=== PATIENT | female | born 1990 | race Caucasian/White ===

== ENCOUNTER 2018-09-22 06:41 | Emergency (ER) | payer MEDICAID ==
[2018-09-22] MEDS ORDERED: normal saline 1000ML IV soln IVB ONE ×2 (06:55→08:30)
[2018-09-22 07:24] LABS: URINE HCG NEGATIVE (NEG)
[2018-09-22 07:34] LABS: BASOPHILS # (AUTO) 0.2 X10'3 (0-0.2); BASOPHILS % (AUTO) 1.4 % (0-1); EOSINOPHILS # (AUTO) 0.2 X10'3 (0-0.9); EOSINOPHILS % (AUTO) 1.4 % (0-6); HEMATOCRIT 44.4 % (35.0-45.0); HEMOGLOBIN 14.8 g/dl (12.0-16.0); LYMPHOCYTES # (AUTO) 4.9 X10'3 (1.1-4.8); LYMPHOCYTES % (AUTO) 39.7 % (21-51); MEAN CORPUSCULAR HEMOGLOBIN 30.9 PG (27.0-31.0); MEAN CORPUSCULAR HGB CONC 33.3 g/dL (33.0-36.5); MEAN CORPUSCULAR VOLUME 92.9 FL (78-98); MEAN PLATELET VOLUME 8.7 FL (7.4-10.4); MONOCYTES # (AUTO) 1.1 X10'3 (0-0.9); MONOCYTES % (AUTO) 8.7 % (2-12); NEUTROPHILS % (AUTO) 48.8 % (42-75); PLATELET COUNT 489 X10'3 (140-440); RED BLOOD COUNT 4.79 X10'6 (4.20-5.60); RED CELL DISTRIBUTION WIDTH 13.4 % (11.5-14.5); WHITE BLOOD COUNT 12.3 X10'3 (4.5-11.0)
[2018-09-22 07:42] LABS: ALANINE AMINOTRANSFERASE 46 U/L (12-78); ALBUMIN 3.5 G/DL (3.4-5.0); ALBUMIN/GLOBULIN RATIO 0.8 (1.1-1.5); ALKALINE PHOSPHATASE 152 IU/L (46-116); ANION GAP 11 (8-16); BILIRUBIN,TOTAL 0.3 MG/DL (0.1-1.0); BLOOD UREA NITROGEN 19 MG/DL (7-18); BUN/CREATININE RATIO 22.9 (6.6-38.0); CHLORIDE 99 MMOL/L (99-107); CREATININE 0.83 MG/DL (0.40-0.90); GLUCOSE 280 MG/DL (70-104); SODIUM 136 MMOL/L (135-145); TOTAL CARBON DIOXIDE 25.9 MMOL/L (24-32); TOTAL PROTEIN 8.1 G/DL (6.4-8.2); eGFR 84 ML/MIN
[2018-09-22 07:46] LABS: ASPARTATE AMINO TRANSFERASE 42 U/L (10-37)
[2018-09-22 07:47] LABS: POTASSIUM 5.2 MMOL/L (3.5-5.1)
[2018-09-22 08:21] VITALS: BP 117/86
--- NOTE | 2018-09-22 08:21 | NUR ---
urine sent to [facility].
--- NOTE | 2018-09-22 08:24 | NUR ---
dr. islas at bedside.
[2018-09-22] MEDS ORDERED: morphine 4 MG/ML inj SYRINge IV PRN (08:30)
[2018-09-22] MEDS ORDERED: ondansetron/PF 4mg/2ml inj IV ONE (08:30)
[2018-09-22 08:42] LABS: CLARITY,URINE CLOUDY (Clear); COLOR,URINE YELLOW (Yellow); GLUCOSE, URINE 500 mg/dl (Neg); KETONES,URINE 15 mg/dl (Neg); LEUKOCYTE ESTERASE ,URINE MODERATE (Neg); NITRITES, URINE NEGATIVE (Neg); OCCULT BLOOD,URINE SMALL (Neg); PROTEIN,URINE 30 mg/dl (Neg); UROBILINOGEN,URINE 0.2 E.U/dL (0.2-1.0)
[2018-09-22 08:43] LABS: UA COLLECTION TYPE CLN CATCH MIDSTREAM
[2018-09-22 08:51] LABS: SQUAMOUS EPITHELIAL CELL,UR MANY /LPF (FEW)
[2018-09-22 08:53] LABS: BACTERIA,URINE 3+ /HPF (Neg); WBC,URINE 30-50 /HPF (0-4)
[2018-09-22 08:54] LABS: TRANSITIONAL EPI CELLS,URINE FEW /HPF
[2018-09-22] MEDS ORDERED: METR500T PO (09:48)
[2018-09-22] MEDS ORDERED: CIPR-259 PO (09:48)
[2018-09-22] MEDS ORDERED: HYDR-3965 PO (09:56)
[2018-09-22] MEDS ORDERED: ONDA4TAB6 PO (09:56)
[2018-09-22 13:35] LABS: OCCULT BLOOD STOOL NEGATIVE (Neg)
== END 2018-09-22 10:21 | disposition home or self-care (01) ==
LOC: ER 06:42
DX: E10.65 Type 1 diabetes mellitus with hyperglycemia (principal); E87.5 Hyperkalemia; R19.7 Diarrhea, unspecified; G89.29 Other chronic pain; K62.89 Other specified diseases of anus and rectum
CPT/HCPCS: 36415; 74176; 80053; 81001; 81025; 82272; 85025; 96361; 96374; 96375; 99284; J2270; J2405; J7030

== ENCOUNTER 2018-12-25 14:45 | Emergency (ER) | payer MEDICAID, OTHER ==
[~2018-12-25] VITALS: Ht 162.6 cm; Wt 59.1 kg
[~2018-12-25 14:45] MED LIST: ONDA4TAB6 PO
[2018-12-25 15:08] VITALS: BP 109/74
[2018-12-26] MEDS ORDERED: DOXY100C43 PO (00:10)
== END 2018-12-25 15:16 | disposition home or self-care (01) ==
LOC: ER 14:46
DX: S90.822A Blister (nonthermal), left foot, initial encounter (principal); E11.9 Type 2 diabetes mellitus without complications; Z90.49 Acquired absence of other specified parts of digestive tract; Z98.890 Other specified postprocedural states; X58.XXXA Exposure to other specified factors, initial encounter; Y93.89 Activity, other specified; Y92.89 Other specified places as the place of occurrence of the external cause; Y99.8 Other external cause status
CPT/HCPCS: 99282

== ENCOUNTER 2018-12-25 21:41 | Emergency (ER) | payer MEDICAID, OTHER ==
[~2018-12-25] VITALS: Ht 162.6 cm; Wt 63.4 kg
[2018-12-25 23:47] VITALS: BP 124/86
[2018-12-26] MEDS ORDERED: DOXYCYCLINE 100MG CAPSULE PO STA (00:07)
[2018-12-26] MEDS ORDERED: DOXY100C43 PO (00:10)
== END 2018-12-26 00:27 | disposition home or self-care (01) ==
LOC: ER 21:41
DX: S90.822A Blister (nonthermal), left foot, initial encounter (principal); E11.9 Type 2 diabetes mellitus without complications; Z90.49 Acquired absence of other specified parts of digestive tract; X58.XXXA Exposure to other specified factors, initial encounter; Y93.89 Activity, other specified; Y92.89 Other specified places as the place of occurrence of the external cause; Y99.9 Unspecified external cause status
CPT/HCPCS: 10140; 99283; 99284

== ENCOUNTER 2019-01-27 09:22 | Emergency (ER) | payer MEDICAID ==
[~2019-01-27] VITALS: Ht 162.6 cm; Wt 59.1 kg
[2019-01-27] MEDS ORDERED: normal saline 1000ML IV soln IVB ONE ×2 (09:50→11:15)
[2019-01-27] MEDS ORDERED: metoclopramide 5 mg/ml inj IV ONE (09:50)
[2019-01-27] MEDS ORDERED: LORazepam 2 mg/ml vial IV ONE (09:50)
[2019-01-27 10:03] LABS: BASOPHILS % (AUTO) 0.3 % (0-1); EOSINOPHILS % (AUTO) 0.1 % (0-6); HEMATOCRIT 40.1 % (35.0-45.0); HEMOGLOBIN 13.2 g/dl (12.0-16.0); LYMPHOCYTES # (AUTO) 0.8 X10'3 (1.1-4.8); LYMPHOCYTES % (AUTO) 6.5 % (21-51); MEAN CORPUSCULAR HEMOGLOBIN 30.9 PG (27.0-31.0); MEAN CORPUSCULAR VOLUME 93.8 FL (78-98); MEAN PLATELET VOLUME 8.6 FL (7.4-10.4); MONOCYTES # (AUTO) 0.2 X10'3 (0-0.9); MONOCYTES % (AUTO) 1.7 % (2-12); NEUTROPHILS # (AUTO) 11.4 X10'3 (1.8-7.7); NEUTROPHILS % (AUTO) 91.4 % (42-75); PLATELET COUNT 386 X10'3 (140-440); RED BLOOD COUNT 4.27 X10'6 (4.20-5.60); RED CELL DISTRIBUTION WIDTH 13.3 % (11.5-14.5); WHITE BLOOD COUNT 12.4 X10'3 (4.5-11.0)
[2019-01-27 10:18] LABS: ALANINE AMINOTRANSFERASE 26 U/L (12-78); ALBUMIN 3.6 G/DL (3.4-5.0); ALBUMIN/GLOBULIN RATIO 0.9 (1.1-1.5); ALKALINE PHOSPHATASE 75 IU/L (46-116); ANION GAP 11 (8-16); ASPARTATE AMINO TRANSFERASE 15 U/L (10-37); BILIRUBIN,TOTAL 0.3 MG/DL (0.1-1.0); BLOOD UREA NITROGEN 9 MG/DL (7-18); BUN/CREATININE RATIO 16.4 (6.6-38.0); CALCIUM 8.9 MG/DL (8.5-10.1); CHLORIDE 101 MMOL/L (99-107); CREATININE 0.55 MG/DL (0.40-0.90); GLUCOSE 247 MG/DL (70-104); LIPASE 162 U/L (73-393); POTASSIUM 3.5 MMOL/L (3.5-5.1); SODIUM 139 MMOL/L (135-145); TOTAL CARBON DIOXIDE 26.9 MMOL/L (24-32); TOTAL PROTEIN 7.4 G/DL (6.4-8.2); eGFR > 90 ML/MIN
--- NOTE | 2019-01-27 10:20 | NUR ---
PATIENT DID NOT WANT TO TAKE HER CLOTHED OFF AND GET INTO A GOWN
--- NOTE | 2019-01-27 10:21 | NUR ---
patient vomited orange colored food twice for a total of 500 ml
--- NOTE | 2019-01-27 11:11 | NUR ---
DR COLVIN INFORMED THAT ST STILL IN THE 120'S TO 130'S DESPITE 2 LITERS OF NS INFUSED
--- NOTE | 2019-01-27 11:35 | NUR ---
pt stated that she is unable to make urine at this time
[2019-01-27] MEDS ORDERED: ringers solution, lacted 1,000 ML IV ONE (12:40)
[2019-01-27 12:44] LABS: MAGNESIUM 1.4 MG/DL (1.5-2.4); PHOSPHORUS 2.6 MG/DL (2.3-4.5)
[2019-01-27] MEDS ORDERED: magnesium 2GM in 50ml NS 50 ML IV ONE (12:55)
[2019-01-27 13:01] VITALS: BP 118/80
--- NOTE | 2019-01-27 13:03 | NUR ---
md aware no void yet, previously discussed anothert liter of fluid, dr toth informed magnesium =1.4, order for 2 grams magnesium recieved
[2019-01-27] MEDS ORDERED: METO-292 PO (13:37)
[2019-01-27] MEDS ORDERED: ONDA4TAB12 PO (13:37)
[2019-01-27 13:39] LABS: URINE HCG NEGATIVE (NEG)
[2019-01-27 13:45] LABS: CLARITY,URINE SLIGHTLY CLOUDY (Clear); COLOR,URINE YELLOW (Yellow); GLUCOSE, URINE >=1000 mg/dl (Neg); KETONES,URINE 40 mg/dl (Neg); LEUKOCYTE ESTERASE ,URINE NEGATIVE (Neg); NITRITES, URINE NEGATIVE (Neg); OCCULT BLOOD,URINE NEGATIVE (Neg); PROTEIN,URINE NEGATIVE (Neg); UROBILINOGEN,URINE 0.2 E.U/dL (0.2-1.0)
[2019-01-27 13:46] LABS: UA COLLECTION TYPE CLN CATCH MIDSTREAM
[2019-01-27 14:17] LABS: AMORPHOUS PHOSPHATES 1+; SQUAMOUS EPITHELIAL CELL,UR MODERATE /LPF (FEW)
[2019-01-27 14:19] LABS: BACTERIA,URINE FEW /HPF (Neg); RBC,URINE 0-2 /HPF (0-2); WBC,URINE 0-4 /HPF (0-4)
== END 2019-01-27 14:10 | disposition home or self-care (01) ==
LOC: ER 09:22
DX: E11.43 Type 2 diabetes mellitus with diabetic autonomic (poly)neuropathy (principal); K31.84 Gastroparesis; R11.2 Nausea with vomiting, unspecified; R00.0 Tachycardia, unspecified; Z90.49 Acquired absence of other specified parts of digestive tract
CPT/HCPCS: 36415; 80053; 81001; 81025; 82948; 83690; 83735; 84100; 85025; 85610; 96361; 96365; 96375; 99283; J2060; J2765; J3475; J7030; J7120

== ENCOUNTER 2019-01-29 19:07 | Emergency (ER) | payer MEDICAID ==
[~2019-01-29] VITALS: Ht 162.6 cm; Wt 61.1 kg
[~2019-01-29 19:07] MED LIST changes: +METO-292 PO; +ONDA4TAB12 PO
[2019-01-29] MEDS ORDERED: metoclopramide 5 mg/ml inj IV ONE (19:20)
[2019-01-29] MEDS ORDERED: normal saline 1000ML IV soln IVB ONE (19:20)
[2019-01-29 19:51] LABS: BASOPHILS # (AUTO) 0.1 X10'3 (0-0.2); EOSINOPHILS % (AUTO) 0.5 % (0-6); HEMATOCRIT 42.7 % (35.0-45.0); HEMOGLOBIN 14.3 g/dl (12.0-16.0); LYMPHOCYTES % (AUTO) 24.2 % (21-51); MEAN CORPUSCULAR HEMOGLOBIN 31.7 PG (27.0-31.0); MEAN CORPUSCULAR HGB CONC 33.5 g/dL (33.0-36.5); MEAN CORPUSCULAR VOLUME 94.6 FL (78-98); MEAN PLATELET VOLUME 8.8 FL (7.4-10.4); MONOCYTES # (AUTO) 0.8 X10'3 (0-0.9); MONOCYTES % (AUTO) 9.7 % (2-12); NEUTROPHILS # (AUTO) 5.4 X10'3 (1.8-7.7); NEUTROPHILS % (AUTO) 64.6 % (42-75); PLATELET COUNT 428 X10'3 (140-440); RED BLOOD COUNT 4.52 X10'6 (4.20-5.60); RED CELL DISTRIBUTION WIDTH 12.9 % (11.5-14.5); WHITE BLOOD COUNT 8.3 X10'3 (4.5-11.0)
[2019-01-29] MEDS ORDERED: LORazepam 2 mg/ml vial IV ONE (20:00)
[2019-01-29] MEDS ORDERED: famotidine/PF 10 mg/ml inj IV ONE (20:00)
[2019-01-29] MEDS ORDERED: proCHLORperazine 10 MG/2 ml inj IV ONE (20:00)
[2019-01-29 20:01] LABS: ALANINE AMINOTRANSFERASE 23 U/L (12-78); ALBUMIN 3.6 G/DL (3.4-5.0); ALBUMIN/GLOBULIN RATIO 0.9 (1.1-1.5); ALKALINE PHOSPHATASE 73 IU/L (46-116); ANION GAP 14 (8-16); ASPARTATE AMINO TRANSFERASE 14 U/L (10-37); BILIRUBIN,TOTAL 0.6 MG/DL (0.1-1.0); BLOOD UREA NITROGEN 4 MG/DL (7-18); CALCIUM 8.8 MG/DL (8.5-10.1); CHLORIDE 99 MMOL/L (99-107); CREATININE 0.57 MG/DL (0.40-0.90); GLUCOSE 218 MG/DL (70-104); LIPASE 95 U/L (73-393); POTASSIUM 3.6 MMOL/L (3.5-5.1); SODIUM 135 MMOL/L (135-145); TOTAL CARBON DIOXIDE 22.2 MMOL/L (24-32); TOTAL PROTEIN 7.4 G/DL (6.4-8.2); eGFR > 90 ML/MIN
[2019-01-29 20:02] LABS: ETHANOL < 0.010 GM/DL (0.0-0.010)
[2019-01-29 20:21] LABS: CLARITY,URINE CLEAR (Clear); COLOR,URINE YELLOW (Yellow); GLUCOSE, URINE 250 mg/dl (Neg); KETONES,URINE >=80 mg/dl (Neg); LEUKOCYTE ESTERASE ,URINE NEGATIVE (Neg); NITRITES, URINE NEGATIVE (Neg); OCCULT BLOOD,URINE NEGATIVE (Neg); PROTEIN,URINE NEGATIVE (Neg); UROBILINOGEN,URINE 0.2 E.U/dL (0.2-1.0)
[2019-01-29 20:24] LABS: URINE HCG NEGATIVE (NEG)
[2019-01-29 20:26] LABS: UA COLLECTION TYPE CLN CATCH MIDSTREAM
--- NOTE | 2019-01-29 21:00 | NUR ---
ASSUMING CARE FROM LACI Parker RN. PT FINISHING 2ND LITER NS. REPORTS SYMPTOMS ARE MUCH IMPROVED AND NAUSEA IS MINIMAL. BOYFRIEND AT BEDSIDE AND WILL TRANSPORT HOME. PT SLEEPY, BUT AWAKENS EASILY. HR 109, OTHERWISE VSS.
--- NOTE | 2019-01-29 21:06 | NUR ---
Rojas kelley in [facility] - 01/29/19 [address] mcrae suturing pts face lac.
[2019-01-29 21:50] VITALS: BP 118/75
== END 2019-01-29 21:57 | disposition home or self-care (01) ==
LOC: ER 19:08
DX: G43.A0 Cyclical vomiting, in migraine, not intractable (principal); E10.9 Type 1 diabetes mellitus without complications; Z90.49 Acquired absence of other specified parts of digestive tract; Z79.899 Other long term (current) drug therapy
CPT/HCPCS: 36415; 80053; 80320; 81003; 81025; 82948; 83690; 85025; 93005; 96374; 96375; 99283; J0780; J2060; J2765

== ENCOUNTER 2019-02-14 14:13 | Emergency (ER) | payer MEDICAID ==
[~2019-02-14] VITALS: Ht 154.9 cm; Wt 59.1 kg
[2019-02-14] MEDS ORDERED: ondansetron/PF 4mg/2ml inj IV ONE ×2 (16:45→17:50)
[2019-02-14] MEDS ORDERED: metoclopramide 5 mg/ml inj IV ONE (16:45)
[2019-02-14] MEDS ORDERED: normal saline 1000ML IV soln IVB ONE (16:45)
[2019-02-14 17:10] LABS: BASOPHILS % (AUTO) 0.4 % (0-1); EOSINOPHILS % (AUTO) 0.1 % (0-6); LYMPHOCYTES # (AUTO) 1.1 X10'3 (1.1-4.8); LYMPHOCYTES % (AUTO) 10.3 % (21-51); MEAN CORPUSCULAR HEMOGLOBIN 31.3 PG (27.0-31.0); MEAN CORPUSCULAR HGB CONC 33.4 g/dL (33.0-36.5); MEAN CORPUSCULAR VOLUME 93.9 FL (78-98); MONOCYTES # (AUTO) 0.3 X10'3 (0-0.9); MONOCYTES % (AUTO) 2.8 % (2-12); NEUTROPHILS # (AUTO) 9.2 X10'3 (1.8-7.7); NEUTROPHILS % (AUTO) 86.4 % (42-75); PLATELET COUNT 387 X10'3 (140-440); RED BLOOD COUNT 4.48 X10'6 (4.20-5.60); WHITE BLOOD COUNT 10.6 X10'3 (4.5-11.0)
[2019-02-14 17:27] LABS: ALANINE AMINOTRANSFERASE 24 U/L (12-78); ALBUMIN/GLOBULIN RATIO 1.1 (1.1-1.5); ALKALINE PHOSPHATASE 69 IU/L (46-116); ANION GAP 13 (8-16); ASPARTATE AMINO TRANSFERASE 15 U/L (10-37); BILIRUBIN,TOTAL 0.7 MG/DL (0.1-1.0); BLOOD UREA NITROGEN 8 MG/DL (7-18); BUN/CREATININE RATIO 14.5 (6.6-38.0); CALCIUM 9.9 MG/DL (8.5-10.1); CHLORIDE 100 MMOL/L (99-107); CREATININE 0.55 MG/DL (0.40-0.90); GLUCOSE 322 MG/DL (70-104); LIPASE 50 U/L (73-393); POTASSIUM 3.8 MMOL/L (3.5-5.1); SODIUM 138 MMOL/L (135-145); TOTAL CARBON DIOXIDE 24.9 MMOL/L (24-32); TOTAL PROTEIN 7.8 G/DL (6.4-8.2); eGFR > 90 ML/MIN
[2019-02-14 17:41] LABS: ABG BASE EXCESS -0.6 mmol/L (-2.0-3.0); ABG HCO3 23.3 mmol/L (22.0-26.0); ABG OXYGEN SATURATION 97.3 % (95-98); ABG PCO2 (T) 36.1 mmHg (35.0-45.0); ABG PH (T) 7.427 (7.350-7.450); ALLEN'S TEST Positive; FCOHb 0.8 % (0.5-1.5); FMetHb 0.2 % (0.3-1.12); FO2Hb 96.3 % (94-100)
[2019-02-14] MEDS ORDERED: bisacodyl 10mg suppository rectal RC STA (18:08)
[2019-02-14] MEDS ORDERED: POLY17PO10 PO (18:13)
[2019-02-14] MEDS ORDERED: NA P133E4 RC (18:13)
[2019-02-14] MEDS ORDERED: ONDA4TAB6 PO (18:13)
[2019-02-14] MEDS ORDERED: proCHLORperazine 10 MG/2 ml inj IV ONE (18:20)
[2019-02-14] MEDS: lactulose 20gm/30ml cup PO ONE ×2 (18:24→18:30)
[2019-02-14 19:06] VITALS: BP 148/90
[2019-02-15] MEDS ORDERED: OMEP40CA13 PO (23:54)
== END 2019-02-14 19:12 | disposition home or self-care (01) ==
LOC: ER 14:14
DX: K59.00 Constipation, unspecified (principal); R11.2 Nausea with vomiting, unspecified; E10.9 Type 1 diabetes mellitus without complications; Z90.49 Acquired absence of other specified parts of digestive tract; Z79.899 Other long term (current) drug therapy
CPT/HCPCS: 36415; 36600; 74018; 80053; 82803; 82948; 83690; 85018; 85025; 93005; 96361; 96374; 96375; 96376; 99284; J0780; J2405; J2765; J7030

== ENCOUNTER 2019-02-15 19:16 | Inpatient (IN) | payer MEDICAID ==
[~2019-02-15] VITALS: Ht 162.6 cm; Wt 59.1 kg
[~2019-02-15 19:16] MED LIST changes: +NA P133E4 RC; +POLY17PO10 PO
[2019-02-15] MEDS ORDERED: morphine 4 MG/ML inj SYRINge IV ONE (21:55)
[2019-02-15] MEDS ORDERED: metoclopramide 5 mg/ml inj IV ONE (21:55)
[2019-02-15] MEDS ORDERED: normal saline 1000ML IV soln IVB ONE ×2 (21:55→23:50)
[2019-02-15] MEDS ORDERED: famotidine/PF 10 mg/ml inj IV ONE (21:55)
--- NOTE | 2019-02-15 22:02 | NUR ---
AWARE OF LABS. NO NEW ORDERS.
[2019-02-15 22:14] LABS: BASOPHILS # (AUTO) 0.1 X10'3 (0-0.2); BASOPHILS % (AUTO) 0.7 % (0-1); EOSINOPHILS % (AUTO) 0 % (0-6); HEMATOCRIT 43.1 % (35.0-45.0); HEMOGLOBIN 14.3 g/dl (12.0-16.0); LYMPHOCYTES # (AUTO) 0.9 X10'3 (1.1-4.8); LYMPHOCYTES % (AUTO) 5.4 % (21-51); MEAN CORPUSCULAR HEMOGLOBIN 30.9 PG (27.0-31.0); MEAN CORPUSCULAR HGB CONC 33.2 g/dL (33.0-36.5); MEAN CORPUSCULAR VOLUME 93.1 FL (78-98); MEAN PLATELET VOLUME 8.7 FL (7.4-10.4); MONOCYTES # (AUTO) 0.6 X10'3 (0-0.9); MONOCYTES % (AUTO) 3.6 % (2-12); NEUTROPHILS # (AUTO) 15.8 X10'3 (1.8-7.7); NEUTROPHILS % (AUTO) 90.3 % (42-75); PLATELET COUNT 469 X10'3 (140-440); RED BLOOD COUNT 4.62 X10'6 (4.20-5.60); RED CELL DISTRIBUTION WIDTH 12.8 % (11.5-14.5); WHITE BLOOD COUNT 17.5 X10'3 (4.5-11.0)
[2019-02-15 22:27] LABS: PARTIAL THROMBOPLASTIN TIME 28 SECONDS (22-32)
[2019-02-15 22:39] LABS: ALANINE AMINOTRANSFERASE 25 U/L (12-78); ALBUMIN 4.3 G/DL (3.4-5.0); ALKALINE PHOSPHATASE 74 IU/L (46-116); ANION GAP 19 (8-16); ASPARTATE AMINO TRANSFERASE 15 U/L (10-37); BILIRUBIN,TOTAL 0.8 MG/DL (0.1-1.0); BLOOD UREA NITROGEN 16 MG/DL (7-18); BUN/CREATININE RATIO 20.8 (6.6-38.0); CALCIUM 9.3 MG/DL (8.5-10.1); CHLORIDE 98 MMOL/L (99-107); CREATININE 0.77 MG/DL (0.40-0.90); GLUCOSE 287 MG/DL (70-104); POTASSIUM 3.8 MMOL/L (3.5-5.1); SODIUM 137 MMOL/L (135-145); TOTAL CARBON DIOXIDE 19.6 MMOL/L (24-32); TOTAL PROTEIN 8.4 G/DL (6.4-8.2); eGFR > 90 ML/MIN
[2019-02-15 22:46] LABS: BETA HCG,QUANTITATIVE < 1.0 mIU/ml; CREATINE KINASE 23 U/L (26-192); LIPASE < 50 U/L (73-393); MAGNESIUM 1.6 MG/DL (1.5-2.4)
[2019-02-15 22:47] LABS: CLARITY,URINE CLEAR (Clear); COLOR,URINE YELLOW (Yellow); GLUCOSE, URINE 500 mg/dl (Neg); KETONES,URINE >=80 mg/dl (Neg); LEUKOCYTE ESTERASE ,URINE NEGATIVE (Neg); NITRITES, URINE NEGATIVE (Neg); OCCULT BLOOD,URINE NEGATIVE (Neg); PH,URINE 5.5 (4.8-8.0); PROTEIN,URINE NEGATIVE (Neg); UROBILINOGEN,URINE 0.2 E.U/dL (0.2-1.0)
[2019-02-15 22:55] LABS: UA COLLECTION TYPE CLN CATCH MIDSTREAM
[2019-02-15] MEDS ORDERED: iohexol 300mg/ml 100ml inj. ONE (23:01)
[2019-02-15 23:08] LABS: URINE AMPHETAMINE SCREEN NEGATIVE (Neg); URINE BARBITUATE SCREEN NEGATIVE (Neg); URINE BENZODIAZEPINES SCREEN NEGATIVE (Neg); URINE CANNABINOID SCREEN NEGATIVE (Neg); URINE COCAINE SCREEN NEGATIVE (Neg); URINE METHADONE SCREEN NEGATIVE (Neg); URINE OPIATE SCREEN NEGATIVE (Neg); URINE PHENCYCLIDINE SCREEN NEGATIVE (Neg)
[2019-02-15] MEDS ORDERED: ondansetron/PF 4mg/2ml inj IV ONE (23:20)
[2019-02-15] MEDS ORDERED: normal saline 1000ml 1,000 ML IV STA (23:50)
[2019-02-15] MEDS ORDERED: OMEP40CA13 PO (23:54)
[2019-02-16] MEDS ORDERED: magnesium 4gm in 100ml NS 100 ML IV PRN (00:05)
[2019-02-16] MEDS ORDERED: potassium Cl 20 mEq SR tablet PO PRN ×2 (00:05)
[2019-02-16] MEDS ORDERED: dextrose 50%-water 50ml dispensing syringe IV PRN ×2 (00:05)
[2019-02-16] MEDS ORDERED: acetaminophen 325mg tablet PO PRN ×2 (00:05)
[2019-02-16] MEDS ORDERED: ondansetron/PF 4mg/2ml inj IV PRN (00:05)
[2019-02-16] MEDS ORDERED: normal saline 1000ml 1,000 ML IV SCH (00:05)
[2019-02-16] MEDS ORDERED: magnesium 2GM in 50ml NS 50 ML IV PRN (00:05)
[2019-02-16] MEDS ORDERED: insulin Lispro (HumaLOG) vial - multi-dose SQ SCH (00:05)
[2019-02-16] MEDS ORDERED: MESSAGE TO PHARMACY PO ONE (00:05)
[2019-02-16] MEDS ORDERED: potassium CL 10mEq/100ml bag 100 ML IV PRN ×2 (00:05)
[2019-02-16] MEDS ORDERED: mag hydrox/Alum hydrox/simeth 30ml oral suspension PO PRN (00:05)
[2019-02-16] MEDS ORDERED: dextrose ORAL solution 15 GM/59 ML bottle PO PRN ×2 (00:05)
[2019-02-16] MEDS ORDERED: glucagon, human recombinant 1mg kit SUBCUT PRN (00:05)
[2019-02-16] MEDS ORDERED: magnesium hydroxide 30ml (MOM) UD suspension PO PRN (00:05)
[2019-02-16] MEDS ORDERED: INSU100I39 SQ (00:45)
[2019-02-16] MEDS ORDERED: LANTUS SQ (00:45)
[2019-02-16 01:12] LABS: HEMOGLOBIN A1C 8.3 % (4.5-6.2)
--- NOTE | 2019-02-16 01:43 | NUR ---
SPOKE WITH DR RIOS AND GAVE VERBAL ORDER FOR BMP AND SERUM ACETONE TO BE DRAWN STAT TO RULE OUT POSSIBLE DKA.
[2019-02-16 02:09] LABS: ANION GAP 12 (8-16); BLOOD UREA NITROGEN 13 MG/DL (7-18); CALCIUM 7.6 MG/DL (8.5-10.1); CHLORIDE 108 MMOL/L (99-107); CREATININE 0.59 MG/DL (0.40-0.90); GLUCOSE 269 MG/DL (70-104); POTASSIUM 4.2 MMOL/L (3.5-5.1); SODIUM 140 MMOL/L (135-145); TOTAL CARBON DIOXIDE 19.8 MMOL/L (24-32); eGFR > 90 ML/MIN
--- NOTE | 2019-02-16 02:37 | NUR ---
Patient in room . I have received report from TAMMY Arango and had the opportunity to ask questions and assume patient care.
[2019-02-16] MEDS ORDERED: non-formulary drug (Ondansetron Hcl (Zofran) 1 TAB) PO PRN (03:05)
[2019-02-16] MEDS ORDERED: non-formulary drug (Na Phos,M-B/Na Phos,Di-Ba* (Fleet's Enema*) 1 BOTTLE) RC SCH (03:05)
[2019-02-16] MEDS ORDERED: metoclopramide 10mg tablet PO PRN (03:05)
[2019-02-16] MEDS ORDERED: ondansetron 4mg rapidly disintigrating tab PO PRN (03:05)
[2019-02-16] MEDS ORDERED: sodium bicarbonate (8.4%) inj. 50 MEQ in dextrose 5% water 500ml 250 ML IV PRN (03:16)
[2019-02-16] MEDS: normal saline 1000ml 1,000 ML IV SCH ×6 (03:16→15:16)
[2019-02-16] MEDS ORDERED: sodium bicarbonate (8.4%) inj. 100 MEQ in dextrose 5% water 500ml 500 ML IV PRN (03:16)
[2019-02-16] MEDS ORDERED: insulin regular, DKA only 100 UNIT in normal saline 100ml IV soln 99 ML IV SCH ×2 (03:16)
[2019-02-16] MEDS ORDERED: insulin regular, human vial - multi-dose IV PRN (03:20)
--- NOTE | 2019-02-16 04:59 | NUR ---
SPOKE WITH DR RIOS. GAVE VERBAL ORDER TO LEAVE INSULIN DRIP GOING AT 5ML/HOUR AND ADMINISTER THE D5W/NS/K MIXTURE PER DKA PROTOCOL.
[2019-02-16] MEDS: potassium CL 20mEq in D5-1/2NS 1,000 ML IV PRN ×4 (05:39→21:00)
[2019-02-16 06:20] LABS: ALANINE AMINOTRANSFERASE 20 U/L (12-78); ALBUMIN 2.8 G/DL (3.4-5.0); ALKALINE PHOSPHATASE 49 IU/L (46-116); ANION GAP 11 (8-16); ASPARTATE AMINO TRANSFERASE 10 U/L (10-37); BILIRUBIN,TOTAL 0.4 MG/DL (0.1-1.0); BLOOD UREA NITROGEN 11 MG/DL (7-18); BUN/CREATININE RATIO 16.4 (6.6-38.0); CALCIUM 7.4 MG/DL (8.5-10.1); CHLORIDE 113 MMOL/L (99-107); CREATININE 0.67 MG/DL (0.40-0.90); GLUCOSE 145 MG/DL (70-104); POTASSIUM 3.3 MMOL/L (3.5-5.1); SODIUM 145 MMOL/L (135-145); TOTAL CARBON DIOXIDE 21.1 MMOL/L (24-32); TOTAL PROTEIN 5.7 G/DL (6.4-8.2); eGFR > 90 ML/MIN
--- NOTE | 2019-02-16 06:48 | NUR ---
BG 121. Insulin drip and IV fluid infusion rates not changed. Insulin drip running 5 units/hr; D5 1/2NS with 20mEq K running at 200 mL/hr.
--- NOTE | 2019-02-16 07:30 | NUR ---
Spoke to Hospitalist regarding new CMP results. Requests conitnuing DKA protocol and admit to PCU.
--- NOTE | 2019-02-16 07:45 | NUR ---
BG 122. Insulin drip and IV fluid infusion rates not changed. Insulin drip running at 5 units/hr; D5 1/2NS with 20mEq K running at 200 mL/hr.
[2019-02-16] MEDS: K and/or MAG REPLACEMENT MC SCH (07:52)
[2019-02-16] MEDS ORDERED: POTASSIUM BICARB 20meq eff tab 20 MEQ TABLET.EFF PO PRN ×2 (07:55→07:56)
[2019-02-16] MEDS: polyethylene glycol 3350 17gm powd pack PO SCH (08:00)
[2019-02-16] MEDS: enoxaparin 40mg/0.4ml syringe SQ SCH (08:05)
[2019-02-16] MEDS: pantoprazole 40mg Tablet.DR PO SCH (08:05)
--- NOTE | 2019-02-16 08:56 | NUR ---
BG 117. Insulin drip and IV fluid infusion rates not changed. Insulin drip running at 5 units/hr; D5 1/2NS with 20mEq K running at 200 mL/hr.
[2019-02-16 09:00] VITALS: BP 147/90
--- NOTE | 2019-02-16 09:30 | NUR ---
PAGER ID: [phone] MESSAGE: [phone] Kailee Tompkins: Per Dr Weems's admit orders he said no to having her on tele. Do you want that to be the case or put her on tele? She is the lady who came in with DKA. TAMMY Zhang Ext [phone]
[2019-02-16] MEDS ORDERED: INSU100C4 SQ (09:49)
[2019-02-16] MEDS ORDERED: INSU100V9 SQ (09:49)
--- NOTE | 2019-02-16 10:15 | NUR ---
Per primary RN request, notified MD of pt 0600 labs of anion gap 11, CO2 21.1. Last FSBG at 1000 was 108 running insulin at 5 and D5 1/2NS with 20of K at 250. Pt nauseated, not able to tolerate PO. Zofran has been ineffective. Received order for BMP and 10mg compazine Q6H IV for nausea. Orders placed per .
[2019-02-16] MEDS: proCHLORperazine 10 MG/2 ml inj IV PRN (10:38)
--- NOTE | 2019-02-16 10:57 | NUR ---
I asked Dr Iyer if he wanted to patient to d10W because patient was currently receiving d5W at 250ml/hr and her accucheck was 86. He said no to switching to d10W but to decrease her insulin gtt from 5 units/hour to 3 units/hr.
[2019-02-16 11:00] VITALS: BP 115/82
[2019-02-16 11:15] LABS: ALBUMIN 3.3 G/DL (3.4-5.0); ANION GAP 9 (8-16); BLOOD UREA NITROGEN 8 MG/DL (7-18); BUN/CREATININE RATIO 13.1 (6.6-38.0); CALCIUM 8.3 MG/DL (8.5-10.1); CHLORIDE 110 MMOL/L (99-107); CREATININE 0.61 MG/DL (0.40-0.90); GLUCOSE 97 MG/DL (70-104); POTASSIUM 3.4 MMOL/L (3.5-5.1); SODIUM 142 MMOL/L (135-145); TOTAL CARBON DIOXIDE 23.1 MMOL/L (24-32); eGFR > 90 ML/MIN
--- NOTE | 2019-02-16 11:47 | NUR ---
PAGER ID: [phone] MESSAGE: [phone] Kailee Tompkins: Her nausea seems seems to be resolving, do you want us to try her on the clear liquids or still keep NPO for now. Also must recent blood sugar 107. TAMMY Zhang Ext [phone]
--- NOTE | 2019-02-16 12:50 | NUR ---
PAGER ID: [phone] MESSAGE: [phone] Kailee Tompkins: Blood sugar still under 150 (113). Still awaiting on her lunch to arrive. Do you want any changes to the insulin rate or fluids, or just keep monitoring? TAMMY Zhang Ext [phone] Addendum: 02/16/19 at 1259 by Vicente Marte RN No new orders
[2019-02-16 13:41] LABS: ALBUMIN 2.9 G/DL (3.4-5.0); ANION GAP 7 (8-16); BLOOD UREA NITROGEN 7 MG/DL (7-18); BUN/CREATININE RATIO 14.6 (6.6-38.0); CALCIUM 7.9 MG/DL (8.5-10.1); CHLORIDE 109 MMOL/L (99-107); CREATININE 0.48 MG/DL (0.40-0.90); GLUCOSE 125 MG/DL (70-104); POTASSIUM 3.6 MMOL/L (3.5-5.1); SODIUM 139 MMOL/L (135-145); TOTAL CARBON DIOXIDE 22.8 MMOL/L (24-32); eGFR > 90 ML/MIN
--- NOTE | 2019-02-16 13:55 | NUR ---
PAGER ID: [phone] MESSAGE: [id number] Bibiana Tompkins: Not eating lunch, upon asking pt she doesn't feel like eating but denied nausea when asked. Do you want any changes in insulin gtt or fluids at the moment? TAMMY Zhang Ext [phone] Addendum: 02/16/19 at 1357 by Vicente Marte RN Ordered to drop insulin gtt down to 2 unit/hr.
[2019-02-16] MEDS: metoclopramide 5 mg/ml inj IV SCH ×2 (14:29→19:53)
[2019-02-16 15:00] VITALS: BP 145/91
--- NOTE | 2019-02-16 16:06 | NUR ---
DM consult. A1c 8.3. Attempted visit with patient at bedside however pt was sleeping and did not wake with verbal cues. Written DM education handout with referral to outpatient DM education class on Tuesday morning and RD contact information left at bedside. Written gastroparesis and low fiber education with a list of fiber content in foods also left at bedside. Patient presented to ED with c/o constipation and no BM for 4-5 days, vomiting 2 days, not able to eat. Per med list pt refused Miralax today. Pt with history of Type 1 DM and gastroparesis. Takes Reglan PRN at home. Possible DKA per H&P. Will continue to follow. Recommend: 1. advance diet as medically indicated to low fiber carb controlled 2. Monitor need for verbal f/u education 3. Wt per rx Addendum: 02/16/19 at [address] Amended: Links added.
--- NOTE | 2019-02-16 16:24 | NUR ---
PAGER ID: [phone] MESSAGE: Antonette [phone] Kailee Tompkins: The boyfirend came in says she has been on Reglan at home, he doesn't believe it has been effective however. TAMMY Zhang Ext [phone]
[2019-02-16 18:00] VITALS: BP 146/99
--- NOTE | 2019-02-16 18:44 | NUR ---
Problems reprioritized. Patient report given, questions answered & plan of care reviewed with Chuy RN.
--- NOTE | 2019-02-16 18:46 | NUR ---
Patient in room PCU 3018. I have received report from Vicente MUNOZ and had the opportunity to ask questions and assume patient care.
--- NOTE | 2019-02-16 20:38 | NUR ---
NOTIFIED PAGER ID: [phone] MESSAGE: [phone], Kailee Tompkins- pt is on insulin @2 units/hr and D5w with 20meq K w/ 1/2 NS @ 250. FSBS have been increasing last Q1 hr checks are 168, 174, 221. do you want me to titrate fluids? Chuy RN PCU
[2019-02-16] MEDS ORDERED: insulin glargine (Lantus) pen - multi-dose SQ SCH (21:00)
--- NOTE | 2019-02-16 21:16 | NUR ---
Per Dr Stuart I will decrease the 20meq D5 1/2 NS from 250 ml/hr to 100ml/hr.
[2019-02-16 22:00] VITALS: BP 145/96
--- NOTE | 2019-02-16 23:03 | NUR ---
NOTIFIED PAGER ID: [phone] MESSAGE: [id number], Kailee Tompkins- last FSBS taken at 2250 was 114, D51/2NS w/20meq K pump was not running when I entered room because of "air bubble" alarm for undetermined amount of time
--- NOTE | 2019-02-16 23:59 | NUR ---
NOTIFIED PAGER ID: [phone] MESSAGE: [phone], Parish Tompkins [facility] just now was 106, may I Titrate the D51/2NS w/ 20meq K? Addendum: 02/17/19 at 0008 by Larry Kinney RN Response from Dr. Stuart, Titrate D5 1/2NS w/ 20meqK.
--- NOTE | 2019-02-17 | NUR ---
20 meq K in D5 1/2 NS rate change to 150 ml/hr
--- NOTE | 2019-02-17 00:50 | NUR ---
20 meq K in D5 1/2 NS rate change to 200 ml/hr
[2019-02-17 02:00] VITALS: BP 147/96
[2019-02-17] MEDS: metoclopramide 5 mg/ml inj IV SCH ×3 (02:18→13:58)
[2019-02-17] MEDS: potassium CL 20mEq in D5-1/2NS 1,000 ML IV PRN (04:11)
--- NOTE | 2019-02-17 04:56 | NUR ---
20 meq K in D5 1/2 NS rate change to 175 ml/hr
[2019-02-17 05:34] LABS: ALBUMIN 2.8 G/DL (3.4-5.0); ANION GAP 9 (8-16); CHLORIDE 106 MMOL/L (99-107); CREATININE 0.43 MG/DL (0.40-0.90); GLUCOSE 134 MG/DL (70-104); MAGNESIUM 1.2 MG/DL (1.5-2.4); POTASSIUM 3.1 MMOL/L (3.5-5.1); SODIUM 139 MMOL/L (135-145); TOTAL CARBON DIOXIDE 24.1 MMOL/L (24-32); eGFR > 90 ML/MIN
[2019-02-17 05:41] LABS: BLOOD UREA NITROGEN 1 MG/DL (7-18); BUN/CREATININE RATIO 2.3 (6.6-38.0)
[2019-02-17 06:00] VITALS: BP 132/79
[2019-02-17 06:07] LABS: BASOPHILS # (AUTO) 0.1 X10'3 (0-0.2); BASOPHILS % (AUTO) 0.7 % (0-1); EOSINOPHILS # (AUTO) 0.1 X10'3 (0-0.9); EOSINOPHILS % (AUTO) 0.5 % (0-6); HEMATOCRIT 33.4 % (35.0-45.0); HEMOGLOBIN 11.3 g/dl (12.0-16.0); LYMPHOCYTES # (AUTO) 2.9 X10'3 (1.1-4.8); LYMPHOCYTES % (AUTO) 27.8 % (21-51); MEAN CORPUSCULAR HEMOGLOBIN 31.7 PG (27.0-31.0); MEAN CORPUSCULAR HGB CONC 33.7 g/dL (33.0-36.5); MEAN PLATELET VOLUME 9.2 FL (7.4-10.4); MONOCYTES % (AUTO) 9.8 % (2-12); NEUTROPHILS # (AUTO) 6.4 X10'3 (1.8-7.7); NEUTROPHILS % (AUTO) 61.2 % (42-75); PLATELET COUNT 338 X10'3 (140-440); RED BLOOD COUNT 3.56 X10'6 (4.20-5.60); RED CELL DISTRIBUTION WIDTH 12.5 % (11.5-14.5); WHITE BLOOD COUNT 10.5 X10'3 (4.5-11.0)
--- NOTE | 2019-02-17 06:31 | NUR ---
Problems reprioritized. Patient report given, questions answered & plan of care reviewed with Marii MUNOZ.
--- NOTE | 2019-02-17 06:33 | NUR ---
Patient in room PCU 3018. I have received report from TAMMY Steele and had the opportunity to ask questions and assume patient care.
--- NOTE | 2019-02-17 07:00 | NUR ---
BG 130. IV increased by 50 cc/hr to 225 cc/hr.
[2019-02-17] MEDS ORDERED: potassium Cl 20 mEq SR tablet PO PRN (07:40)
[2019-02-17] MEDS: pantoprazole 40mg Tablet.DR PO SCH (07:46)
[2019-02-17] MEDS: potassium Cl 20 mEq SR tablet PO PRN ×3 (07:47→18:21)
[2019-02-17] MEDS: polyethylene glycol 3350 17gm powd pack PO SCH ×2 (07:48→08:00)
[2019-02-17] MEDS: enoxaparin 40mg/0.4ml syringe SQ SCH (07:48)
[2019-02-17] MEDS: magnesium Cl slow-release 64mg tablet PO PRN ×2 (07:53→19:52)
[2019-02-17] MEDS: K and/or MAG REPLACEMENT MC SCH (08:00)
--- NOTE | 2019-02-17 08:00 | NUR ---
BG 150. IV rate unchanged.
--- NOTE | 2019-02-17 09:00 | NUR ---
BG 153. IV fluid rate unchanged.
--- NOTE | 2019-02-17 10:00 | NUR ---
Heparin GTT dc'd, telemetry dc'd. IV fluids dc'd.
[2019-02-17 11:00] VITALS: BP 154/81
[2019-02-17 11:54] LABS: % IRON SATURATION 23 % (11-46); IRON 58 UG/DL (49-151); TOTAL IRON BINDING CAPACITY 257 UG/DL (259-388)
[2019-02-17] MEDS: insulin Lispro (HumaLOG) vial - multi-dose SQ SCH ×2 (13:53→19:58)
--- NOTE | 2019-02-17 14:32 | NUR ---
Patient only ate a few bites of rice. Addendum: 02/17/19 at 1432 by Marii Vu RN Amended: Links added.
[2019-02-17 15:00] VITALS: BP 148/90
[2019-02-17 18:00] VITALS: BP 146/90
--- NOTE | 2019-02-17 18:17 | NUR ---
Problems reprioritized. Patient report given, questions answered & plan of care reviewed with TAMMY Roque.
--- NOTE | 2019-02-17 19:00 | NUR ---
Patient in room PCU 3018. I have received report from Jude MUNOZ and had the opportunity to ask questions and assume patient care.
[2019-02-17] MEDS: metoclopramide 10mg tablet PO SCH (19:53)
[2019-02-17] MEDS ORDERED: insulin glargine (Lantus) pen - multi-dose SQ SCH (21:00)
[2019-02-17 22:00] VITALS: BP 126/86
[2019-02-18 02:00] VITALS: BP 106/65
[2019-02-18] MEDS: metoclopramide 10mg tablet PO SCH ×2 (02:00→07:35)
[2019-02-18] MEDS: proCHLORperazine 10 MG/2 ml inj IV PRN (03:40)
[2019-02-18 06:00] VITALS: BP 110/71
--- NOTE | 2019-02-18 06:24 | NUR ---
Problems reprioritized. Patient report given, questions answered & plan of care reviewed with Vandana MUNOZ.
[2019-02-18 06:33] LABS: BASOPHILS # (AUTO) 0.1 X10'3 (0-0.2); BASOPHILS % (AUTO) 1.1 % (0-1); EOSINOPHILS # (AUTO) 0.1 X10'3 (0-0.9); EOSINOPHILS % (AUTO) 1.3 % (0-6); HEMOGLOBIN 12.1 g/dl (12.0-16.0); LYMPHOCYTES # (AUTO) 2.2 X10'3 (1.1-4.8); LYMPHOCYTES % (AUTO) 28.3 % (21-51); MEAN CORPUSCULAR HEMOGLOBIN 31.3 PG (27.0-31.0); MEAN CORPUSCULAR HGB CONC 33.5 g/dL (33.0-36.5); MEAN CORPUSCULAR VOLUME 93.3 FL (78-98); MEAN PLATELET VOLUME 9.3 FL (7.4-10.4); MONOCYTES # (AUTO) 0.8 X10'3 (0-0.9); NEUTROPHILS # (AUTO) 4.7 X10'3 (1.8-7.7); NEUTROPHILS % (AUTO) 59.3 % (42-75); PLATELET COUNT 378 X10'3 (140-440); RED BLOOD COUNT 3.86 X10'6 (4.20-5.60); RED CELL DISTRIBUTION WIDTH 12.6 % (11.5-14.5); WHITE BLOOD COUNT 7.9 X10'3 (4.5-11.0)
[2019-02-18 06:44] LABS: ALBUMIN 3.1 G/DL (3.4-5.0); ANION GAP 11 (8-16); BLOOD UREA NITROGEN 7 MG/DL (7-18); BUN/CREATININE RATIO 15.6 (6.6-38.0); CALCIUM 8.4 MG/DL (8.5-10.1); CHLORIDE 100 MMOL/L (99-107); CREATININE 0.45 MG/DL (0.40-0.90); GLUCOSE 222 MG/DL (70-104); MAGNESIUM 1.5 MG/DL (1.5-2.4); POTASSIUM 4.4 MMOL/L (3.5-5.1); SODIUM 134 MMOL/L (135-145); TOTAL CARBON DIOXIDE 23.1 MMOL/L (24-32); eGFR > 90 ML/MIN
--- NOTE | 2019-02-18 07:05 | NUR ---
Patient in room PCU 3018. I have received report from TAMMY Hicks and had the opportunity to ask questions and assume patient care.
[2019-02-18] MEDS: pantoprazole 40mg Tablet.DR PO SCH (07:35)
[2019-02-18] MEDS: polyethylene glycol 3350 17gm powd pack PO SCH (07:35)
[2019-02-18] MEDS: enoxaparin 40mg/0.4ml syringe SQ SCH (07:37)
[2019-02-18] MEDS: K and/or MAG REPLACEMENT MC SCH (08:00)
[2019-02-18] MEDS: insulin Lispro (HumaLOG) vial - multi-dose SQ SCH (09:07)
--- NOTE | 2019-02-18 09:27 | NUR ---
spoke with Dr. Weber notified him that pt has been tachycardic and is not on tele. pt denies any drug use. states that her heart rate was elevated on her last admission as well. Dr. Weber aware.
[2019-02-18 11:00] VITALS: BP 147/92
--- NOTE | 2019-02-18 11:35 | NUR ---
faxed referral for diabetes education with face sheet
--- NOTE | 2019-02-18 11:44 | NUR ---
pt given diabetes survival skilla packet with hgb a1c and info on out pt diabetes education classes.
--- NOTE | 2019-02-18 12:50 | NUR ---
PT DISCHARGED IN STABLE CONDITION. PIV DC'D CANULA INTACT. ALL BELONGINGS SENT HOME WITH PT. DIABETES SURVIVAL SKILLS WITH HGB A1C GIVEN TO PT AND REFERRAL TO DIABETES EDUCATION. PT DID NOT WANT TO EAT LUNCH HERE BEFORE D/C AND SAID SHE WILL DO LUNCHTIME INSULIN COVERAGE AT HOME AFTER SHE EATS.
== END 2019-02-18 12:50 | disposition home or self-care (01) | DRG 48 ==
LOC: ER 19:18 → UNDOADMOB 02-16 03:07 → ORTHO 4S 02-16 03:07 → ED HOLD 02-16 07:29 → OBSVTOIN 02-16 09:31 → PCU 3S 02-16 09:31
PROVIDERS: ADMIT Hospitalist; ATTEND Hospitalist
DX: E10.43 Type 1 diabetes mellitus with diabetic autonomic (poly)neuropathy (principal); K31.84 Gastroparesis; D64.9 Anemia, unspecified; E87.6 Hypokalemia; E10.10 Type 1 diabetes mellitus with ketoacidosis without coma; K59.00 Constipation, unspecified; Z90.49 Acquired absence of other specified parts of digestive tract; Z79.4 Long term (current) use of insulin
CPT/HCPCS: 36415; 74177; 80048; 80053; 80305; 81003; 82009; 82550; 82607; 82948; 83036; 83540; 83550; 83690; 83735; 84439; 84443; 84702; 85025; 85610; 85730; 87081; 93005; 96365; 96368; 96375; 96376; 99285; G0378; J0780; J1650; J1815; J2270; J2405; J2765; J3480; J3490; J7030; J8597; Q9967

== ENCOUNTER 2019-02-26 04:43 | Emergency (ER) | payer MEDICAID ==
[~2019-02-26] VITALS: Ht 162.6 cm; Wt 59.1 kg
[~2019-02-26 04:43] MED LIST changes: +INSU100C4 SQ; +INSU100V9 SQ; -NA P133E4 RC; +OMEP40CA13 PO; -ONDA4TAB6 PO
[2019-02-26] MEDS ORDERED: normal saline 1000ml 1,000 ML IV ONE (05:00)
[2019-02-26] MEDS ORDERED: normal saline 1000ML IV soln IVB ONE (05:05)
[2019-02-26 05:08] LABS: BASOPHILS # (AUTO) 0.1 X10'3 (0-0.2); BASOPHILS % (AUTO) 0.5 % (0-1); EOSINOPHILS % (AUTO) 0 % (0-6); HEMATOCRIT 39.3 % (35.0-45.0); HEMOGLOBIN 13.2 g/dl (12.0-16.0); LYMPHOCYTES # (AUTO) 0.6 X10'3 (1.1-4.8); LYMPHOCYTES % (AUTO) 3.8 % (21-51); MEAN CORPUSCULAR HEMOGLOBIN 31.2 PG (27.0-31.0); MEAN CORPUSCULAR HGB CONC 33.5 g/dL (33.0-36.5); MEAN CORPUSCULAR VOLUME 93.2 FL (78-98); MEAN PLATELET VOLUME 9.1 FL (7.4-10.4); MONOCYTES # (AUTO) 0.2 X10'3 (0-0.9); MONOCYTES % (AUTO) 1.1 % (2-12); NEUTROPHILS # (AUTO) 14.8 X10'3 (1.8-7.7); NEUTROPHILS % (AUTO) 94.6 % (42-75); PLATELET COUNT 478 X10'3 (140-440); RED BLOOD COUNT 4.22 X10'6 (4.20-5.60); RED CELL DISTRIBUTION WIDTH 13.2 % (11.5-14.5); WHITE BLOOD COUNT 15.6 X10'3 (4.5-11.0)
[2019-02-26] MEDS ORDERED: ondansetron/PF 4mg/2ml inj IV ONE (05:10)
[2019-02-26] MEDS ORDERED: metoclopramide 5 mg/ml inj IV ONE (05:10)
[2019-02-26] MEDS ORDERED: diphenhydrAMINE 50 mg/ml inj IV ONE (05:10)
[2019-02-26 05:20] LABS: ALANINE AMINOTRANSFERASE 21 U/L (12-78); ALBUMIN 3.8 G/DL (3.4-5.0); ALKALINE PHOSPHATASE 61 IU/L (46-116); ANION GAP 15 (8-16); ASPARTATE AMINO TRANSFERASE 12 U/L (10-37); BILIRUBIN,TOTAL 0.6 MG/DL (0.1-1.0); BLOOD UREA NITROGEN 14 MG/DL (7-18); BUN/CREATININE RATIO 19.7 (6.6-38.0); CALCIUM 9.1 MG/DL (8.5-10.1); CHLORIDE 101 MMOL/L (99-107); CREATININE 0.71 MG/DL (0.40-0.90); GLUCOSE 279 MG/DL (70-104); POTASSIUM 3.8 MMOL/L (3.5-5.1); SODIUM 139 MMOL/L (135-145); TOTAL PROTEIN 7.8 G/DL (6.4-8.2); eGFR > 90 ML/MIN
[2019-02-26 05:33] LABS: ETHANOL < 0.010 GM/DL (0.0-0.010)
[2019-02-26] MEDS ORDERED: ONDA8TAB6 PO (05:44)
[2019-02-26] MEDS ORDERED: PROM25SU46 RC (05:44)
[2019-02-26] MEDS ORDERED: insulin regular, human 10 units/0.1 ml syringe IV ONE (05:55)
[2019-02-26 08:45] LABS: URINE HCG NEGATIVE (NEG)
[2019-02-26 08:47] LABS: CLARITY,URINE CLOUDY (Clear); COLOR,URINE YELLOW (Yellow); GLUCOSE, URINE >=1000 mg/dl (Neg); KETONES,URINE >=80 mg/dl (Neg); LEUKOCYTE ESTERASE ,URINE NEGATIVE (Neg); NITRITES, URINE NEGATIVE (Neg); OCCULT BLOOD,URINE NEGATIVE (Neg); PROTEIN,URINE NEGATIVE (Neg); UROBILINOGEN,URINE 0.2 E.U/dL (0.2-1.0)
[2019-02-26 08:48] LABS: UA COLLECTION TYPE CLN CATCH MIDSTREAM
[2019-02-26 08:54] LABS: MUCUS STRANDS FEW /LPF (Neg)
[2019-02-26 08:55] LABS: BACTERIA,URINE 1+ /HPF (Neg); RBC,URINE 0-2 /HPF (0-2); WBC,URINE 0-4 /HPF (0-4)
[2019-02-26 08:56] LABS: SQUAMOUS EPITHELIAL CELL,UR MANY /LPF (FEW); YEAST FEW /HPF (NEGATIVE)
--- NOTE | 2019-02-26 09:20 | NUR ---
PT RECEIVED WATER FOR PO CHALLENGE NO EMESIS OF THIS TIME.
[2019-02-26] MEDS ORDERED: haloperidol lactate 5mg/ml inj IM ONE (09:55)
[2019-02-26] MEDS ORDERED: LORazepam 2 mg/ml vial IV ONE (10:25)
--- NOTE | 2019-02-26 13:39 | NUR ---
pt is calling for a ride home.
[2019-02-26 14:49] VITALS: BP 94/58
[2019-02-27] MEDS ORDERED: PROC25SU31 RC (15:28)
== END 2019-02-26 14:50 | disposition home or self-care (01) ==
LOC: ER 04:43
DX: G43.A0 Cyclical vomiting, in migraine, not intractable (principal); E10.10 Type 1 diabetes mellitus with ketoacidosis without coma; E10.43 Type 1 diabetes mellitus with diabetic autonomic (poly)neuropathy; K31.84 Gastroparesis; R79.1 Abnormal coagulation profile; Z90.49 Acquired absence of other specified parts of digestive tract; Z79.4 Long term (current) use of insulin; Z79.899 Other long term (current) drug therapy
CPT/HCPCS: 36415; 80053; 80320; 81001; 81025; 82948; 85025; 85610; 96361; 96372; 96374; 96375; 99284; J1200; J1630; J1815; J2060; J2405; J2765; J7030

== ENCOUNTER 2019-02-27 12:36 | Emergency (ER) | payer MEDICAID ==
[~2019-02-27] VITALS: Ht 162.6 cm; Wt 59.1 kg
[~2019-02-27 12:36] MED LIST changes: +ONDA8TAB6 PO; +PROM25SU46 RC
[2019-02-27] MEDS ORDERED: LORazepam 2 mg/ml vial IV ONE (12:55)
[2019-02-27] MEDS ORDERED: pantoprazole 40 MG vial IV ONE (12:55)
[2019-02-27] MEDS ORDERED: metoclopramide 5 mg/ml inj IV ONE (12:55)
[2019-02-27] MEDS ORDERED: normal saline 1000ML IV soln IVB ONE (12:55)
[2019-02-27 13:26] LABS: BASOPHILS # (AUTO) 0.1 X10'3 (0-0.2); BASOPHILS % (AUTO) 0.3 % (0-1); EOSINOPHILS % (AUTO) 0 % (0-6); HEMATOCRIT 35.4 % (35.0-45.0); HEMOGLOBIN 11.8 g/dl (12.0-16.0); LYMPHOCYTES # (AUTO) 1.7 X10'3 (1.1-4.8); MEAN CORPUSCULAR HEMOGLOBIN 31.3 PG (27.0-31.0); MEAN CORPUSCULAR HGB CONC 33.2 g/dL (33.0-36.5); MEAN CORPUSCULAR VOLUME 94.1 FL (78-98); MEAN PLATELET VOLUME 8.7 FL (7.4-10.4); MONOCYTES # (AUTO) 0.9 X10'3 (0-0.9); MONOCYTES % (AUTO) 6.1 % (2-12); NEUTROPHILS # (AUTO) 12.6 X10'3 (1.8-7.7); NEUTROPHILS % (AUTO) 82.6 % (42-75); PLATELET COUNT 417 X10'3 (140-440); RED BLOOD COUNT 3.77 X10'6 (4.20-5.60); RED CELL DISTRIBUTION WIDTH 12.9 % (11.5-14.5); WHITE BLOOD COUNT 15.3 X10'3 (4.5-11.0)
[2019-02-27 13:40] LABS: ALANINE AMINOTRANSFERASE 16 U/L (12-78); ALBUMIN 3.1 G/DL (3.4-5.0); ALBUMIN/GLOBULIN RATIO 0.9 (1.1-1.5); ALKALINE PHOSPHATASE 51 IU/L (46-116); ANION GAP 13 (8-16); ASPARTATE AMINO TRANSFERASE 14 U/L (10-37); BILIRUBIN,TOTAL 0.6 MG/DL (0.1-1.0); BLOOD UREA NITROGEN 11 MG/DL (7-18); BUN/CREATININE RATIO 19.3 (6.6-38.0); CALCIUM 8.3 MG/DL (8.5-10.1); CHLORIDE 103 MMOL/L (99-107); CREATININE 0.57 MG/DL (0.40-0.90); GLUCOSE 198 MG/DL (70-104); POTASSIUM 3.7 MMOL/L (3.5-5.1); SODIUM 139 MMOL/L (135-145); TOTAL CARBON DIOXIDE 22.7 MMOL/L (24-32); TOTAL PROTEIN 6.4 G/DL (6.4-8.2); eGFR > 90 ML/MIN
[2019-02-27] MEDS ORDERED: PROC25SU31 RC (15:28)
[2019-02-27 15:52] VITALS: BP 130/104
== END 2019-02-27 15:54 | disposition home or self-care (01) ==
LOC: ER 12:37
DX: E11.43 Type 2 diabetes mellitus with diabetic autonomic (poly)neuropathy (principal); K31.84 Gastroparesis; Z79.4 Long term (current) use of insulin
CPT/HCPCS: 36415; 80053; 82948; 85025; 96361; 96374; 96375; 99283; C9113; J2060; J2765; J7030

== ENCOUNTER 2019-03-01 12:47 | Emergency (ER) | payer MEDICAID ==
[~2019-03-01] VITALS: Ht 162.6 cm; Wt 59.1 kg
[~2019-03-01 12:47] MED LIST changes: +PROC25SU31 RC
[2019-03-01] MEDS ORDERED: normal saline 1000ML IV soln IV ONE (13:20)
[2019-03-01] MEDS ORDERED: metoclopramide 5 mg/ml inj IV ONE (13:20)
[2019-03-01 13:31] LABS: BASOPHILS # (AUTO) 0.1 X10'3 (0-0.2); BASOPHILS % (AUTO) 0.7 % (0-1); EOSINOPHILS % (AUTO) 0.2 % (0-6); HEMATOCRIT 40.7 % (35.0-45.0); HEMOGLOBIN 13.6 g/dl (12.0-16.0); LYMPHOCYTES # (AUTO) 1.5 X10'3 (1.1-4.8); LYMPHOCYTES % (AUTO) 13.2 % (21-51); MEAN CORPUSCULAR HEMOGLOBIN 31.6 PG (27.0-31.0); MEAN CORPUSCULAR HGB CONC 33.5 g/dL (33.0-36.5); MEAN CORPUSCULAR VOLUME 94.3 FL (78-98); MEAN PLATELET VOLUME 8.6 FL (7.4-10.4); MONOCYTES # (AUTO) 0.7 X10'3 (0-0.9); MONOCYTES % (AUTO) 6.8 % (2-12); NEUTROPHILS # (AUTO) 8.7 X10'3 (1.8-7.7); NEUTROPHILS % (AUTO) 79.1 % (42-75); PLATELET COUNT 478 X10'3 (140-440); RED BLOOD COUNT 4.31 X10'6 (4.20-5.60); RED CELL DISTRIBUTION WIDTH 13.2 % (11.5-14.5)
[2019-03-01 13:46] LABS: ALANINE AMINOTRANSFERASE 21 U/L (12-78); ALBUMIN 3.7 G/DL (3.4-5.0); ALBUMIN/GLOBULIN RATIO 0.9 (1.1-1.5); ALKALINE PHOSPHATASE 67 IU/L (46-116); ANION GAP 15 (8-16); ASPARTATE AMINO TRANSFERASE 18 U/L (10-37); BILIRUBIN,TOTAL 0.6 MG/DL (0.1-1.0); BLOOD UREA NITROGEN 8 MG/DL (7-18); BUN/CREATININE RATIO 11.3 (6.6-38.0); CALCIUM 8.8 MG/DL (8.5-10.1); CHLORIDE 101 MMOL/L (99-107); CREATININE 0.71 MG/DL (0.40-0.90); GLUCOSE 129 MG/DL (70-104); LIPASE 61 U/L (73-393); MAGNESIUM 1.4 MG/DL (1.5-2.4); PHOSPHORUS 2.8 MG/DL (2.3-4.5); POTASSIUM 3.3 MMOL/L (3.5-5.1); SODIUM 137 MMOL/L (135-145); TOTAL CARBON DIOXIDE 21.2 MMOL/L (24-32); TOTAL PROTEIN 7.6 G/DL (6.4-8.2); eGFR > 90 ML/MIN
[2019-03-01 13:56] LABS: URINE HCG NEGATIVE (NEG)
[2019-03-01 13:57] LABS: CLARITY,URINE TURBID (Clear); COLOR,URINE YELLOW (Yellow); GLUCOSE, URINE NEGATIVE (Neg); KETONES,URINE >=80 mg/dl (Neg); LEUKOCYTE ESTERASE ,URINE TRACE (Neg); NITRITES, URINE NEGATIVE (Neg); OCCULT BLOOD,URINE TRACE-INTACT (Neg); PROTEIN,URINE 30 mg/dl (Neg); UROBILINOGEN,URINE 0.2 E.U/dL (0.2-1.0)
[2019-03-01 14:00] LABS: UA COLLECTION TYPE CLN CATCH MIDSTREAM
[2019-03-01 14:03] LABS: MUCUS STRANDS MANY /LPF (Neg); SQUAMOUS EPITHELIAL CELL,UR MANY /LPF (FEW)
[2019-03-01 14:05] LABS: YEAST MANY /HPF (NEGATIVE)
[2019-03-01 14:08] LABS: BACTERIA,URINE FEW /HPF (Neg); RBC,URINE NONE SEEN /HPF (0-2)
[2019-03-01] MEDS ORDERED: LORazepam 2 mg/ml vial IV ONE (14:30)
[2019-03-01] MEDS ORDERED: ondansetron/PF 4mg/2ml inj IV ONE (14:30)
[2019-03-01] MEDS ORDERED: fluconazole 150mg tablet PO ONE (14:45)
[2019-03-01 15:52] VITALS: BP 113/67
== END 2019-03-01 15:55 | disposition home or self-care (01) ==
LOC: ER 12:47
DX: E10.43 Type 1 diabetes mellitus with diabetic autonomic (poly)neuropathy (principal); K31.84 Gastroparesis; R11.2 Nausea with vomiting, unspecified; Z90.49 Acquired absence of other specified parts of digestive tract; Z79.4 Long term (current) use of insulin; Z79.899 Other long term (current) drug therapy
CPT/HCPCS: 36415; 80053; 81001; 81025; 83690; 83735; 84100; 85025; 85610; 96361; 96374; 96375; 99284; J2060; J2405; J2765; J7030

== ENCOUNTER 2020-06-22 11:30 | Emergency (ER) | payer MEDICAID ==
[~2020-06-22 11:30] MED LIST changes: -POLY17PO10 PO; -PROC25SU31 RC; -PROM25SU46 RC; +PROM25SU9 RC
[2020-06-22] MEDS ORDERED: metoclopramide 5 mg/ml inj IV ONE (12:50)
[2020-06-22] MEDS ORDERED: diphenhydrAMINE 50 mg/ml inj IV ONE (12:50)
[2020-06-22] MEDS ORDERED: normal saline 1000ML IV soln IVB ONE ×2 (12:50→13:45)
--- NOTE | 2020-06-22 12:59 | NUR ---
Lab at bedside for blood draw.
--- NOTE | 2020-06-22 13:12 | NUR ---
Pt medicated as ordered and lights dimmed for comfort.
[2020-06-22 13:13] LABS: BASOPHILS % (AUTO) 0.4 % (0-1); EOSINOPHILS % (AUTO) 0 % (0-6); HEMATOCRIT 37.9 % (35.0-45.0); HEMOGLOBIN 12.6 g/dl (12.0-16.0); LYMPHOCYTES # (AUTO) 1.2 X10'3 (1.1-4.8); MEAN CORPUSCULAR HEMOGLOBIN 30.1 PG (27.0-31.0); MEAN CORPUSCULAR HGB CONC 33.2 g/dL (33.0-36.5); MEAN CORPUSCULAR VOLUME 90.6 FL (78-98); MEAN PLATELET VOLUME 9.3 FL (7.4-10.4); MONOCYTES # (AUTO) 0.6 X10'3 (0-0.9); MONOCYTES % (AUTO) 7.5 % (2-12); NEUTROPHILS # (AUTO) 6.2 X10'3 (1.8-7.7); NEUTROPHILS % (AUTO) 77.1 % (42-75); PLATELET COUNT 257 X10'3 (140-440); RED BLOOD COUNT 4.18 X10'6 (4.20-5.60); RED CELL DISTRIBUTION WIDTH 13.5 % (11.5-14.5); WHITE BLOOD COUNT 8.1 X10'3 (4.5-11.0)
[2020-06-22 13:22] LABS: ALANINE AMINOTRANSFERASE 16 U/L (12-78); ALBUMIN 3.1 G/DL (3.4-5.0); ALBUMIN/GLOBULIN RATIO 0.8 (1.1-1.5); ALKALINE PHOSPHATASE 96 IU/L (46-116); ANION GAP 8 (8-16); ASPARTATE AMINO TRANSFERASE 15 U/L (10-37); BILIRUBIN,TOTAL 0.2 MG/DL (0.1-1.0); BLOOD UREA NITROGEN 11 MG/DL (7-18); BUN/CREATININE RATIO 17.7 (6.6-38.0); CALCIUM 8.2 MG/DL (8.5-10.1); CHLORIDE 101 MMOL/L (99-107); CREATININE 0.62 MG/DL (0.40-0.90); GLUCOSE 272 MG/DL (70-104); LIPASE < 50 U/L (73-393); POTASSIUM 4.4 MMOL/L (3.5-5.1); SODIUM 134 MMOL/L (135-145); TOTAL CARBON DIOXIDE 25.2 MMOL/L (24-32); TOTAL PROTEIN 6.9 G/DL (6.4-8.2); eGFR > 90 ML/MIN
--- NOTE | 2020-06-22 13:22 | NUR ---
MD AT BEDSIDE ASSESSING PATIENT
[2020-06-22 14:57] LABS: URINE HCG NEGATIVE (NEG)
[2020-06-22 14:59] LABS: CLARITY,URINE SLIGHTLY CLOUDY (Clear); COLOR,URINE YELLOW (Yellow); GLUCOSE, URINE >=1000 mg/dl (Neg); KETONES,URINE >=80 mg/dl (Neg); LEUKOCYTE ESTERASE ,URINE NEGATIVE (Neg); NITRITES, URINE NEGATIVE (Neg); OCCULT BLOOD,URINE NEGATIVE (Neg); PH,URINE 5.5 (4.8-8.0); PROTEIN,URINE NEGATIVE (Neg); UROBILINOGEN,URINE 0.2 E.U/dL (0.2-1.0)
[2020-06-22 15:01] LABS: UA COLLECTION TYPE CLN CATCH MIDSTREAM
[2020-06-22 15:08] LABS: BACTERIA,URINE 1+ /HPF (Neg); MUCUS STRANDS NONE SEEN /LPF (Neg); RBC,URINE 0-2 /HPF (0-2); SQUAMOUS EPITHELIAL CELL,UR MANY /LPF (FEW); WBC,URINE 0-4 /HPF (0-4)
[2020-06-22] MEDS ORDERED: PROC25SU31 RC (15:50)
[2020-06-22 16:04] VITALS: BP 114/69
== END 2020-06-22 16:10 | disposition home or self-care (01) ==
LOC: ER 11:30
DX: E10.43 Type 1 diabetes mellitus with diabetic autonomic (poly)neuropathy (principal); K31.84 Gastroparesis; R11.2 Nausea with vomiting, unspecified; Z90.89 Acquired absence of other organs; Z79.4 Long term (current) use of insulin; Z79.899 Other long term (current) drug therapy
CPT/HCPCS: 36415; 74018; 80053; 81001; 81025; 82948; 83690; 85025; 96361; 96374; 96375; 99284; J1200; J2765; J7030; 99285

== ENCOUNTER 2020-06-25 12:56 | Emergency (ER) | payer MEDICAID ==
[~2020-06-25] VITALS: Ht 162.6 cm; Wt 68.2 kg
[~2020-06-25 12:56] MED LIST changes: +PROC25SU31 RC
[2020-06-25 13:17] VITALS: BP 111/77
== END 2020-06-25 19:37 | disposition left against medical advice (07) ==
LOC: ER 12:57
DX: R51.9 Headache, unspecified (principal); Z53.21 Procedure and treatment not carried out due to patient leaving prior to being seen by health care provider

== ENCOUNTER 2021-12-17 21:43 | Emergency (ER) | payer MEDICAID ==
[~2021-12-17] VITALS: Ht 162.6 cm; Wt 79.1 kg
[~2021-12-17 21:43] MED LIST changes: -OMEP40CA13 PO; +OMEP40CA21 PO; -PROC25SU31 RC
[2021-12-17 21:49] VITALS: BP 139/81
[2021-12-17 22:42] LABS: BASOPHILS # (AUTO) 0.1 X10'3 (0-0.2); BASOPHILS % (AUTO) 0.8 % (0-1); EOSINOPHILS # (AUTO) 0.1 X10'3 (0-0.9); EOSINOPHILS % (AUTO) 1.1 % (0-6); HEMATOCRIT 38.2 % (35.0-45.0); HEMOGLOBIN 12.7 g/dl (12.0-16.0); LYMPHOCYTES # (AUTO) 3.4 X10'3 (1.1-4.8); LYMPHOCYTES % (AUTO) 28.4 % (21-51); MEAN CORPUSCULAR HGB CONC 33.1 g/dL (33.0-36.5); MEAN CORPUSCULAR VOLUME 87.7 FL (78-98); MEAN PLATELET VOLUME 9.3 FL (7.4-10.4); MONOCYTES # (AUTO) 0.8 X10'3 (0-0.9); MONOCYTES % (AUTO) 6.6 % (2-12); NEUTROPHILS # (AUTO) 7.5 X10'3 (1.8-7.7); NEUTROPHILS % (AUTO) 63.1 % (42-75); PLATELET COUNT 424 X10'3 (140-440); RED BLOOD COUNT 4.36 X10'6 (4.20-5.60); RED CELL DISTRIBUTION WIDTH 13.9 % (11.5-14.5); WHITE BLOOD COUNT 11.9 X10'3 (4.5-11.0)
[2021-12-17 22:52] LABS: ALANINE AMINOTRANSFERASE 24 U/L (12-78); ALBUMIN 3.7 G/DL (3.4-5.0); ALBUMIN/GLOBULIN RATIO 0.9 (1.1-1.5); ALKALINE PHOSPHATASE 95 IU/L (46-116); ANION GAP 11 (8-16); ASPARTATE AMINO TRANSFERASE 19 U/L (10-37); BILIRUBIN,TOTAL 0.3 MG/DL (0.1-1.0); BLOOD UREA NITROGEN 13 MG/DL (7-18); CHLORIDE 101 MMOL/L (99-107); CREATININE 0.81 MG/DL (0.40-0.90); GLUCOSE 212 MG/DL (70-104); LIPASE < 50 U/L (73-393); POTASSIUM 3.7 MMOL/L (3.5-5.1); SODIUM 140 MMOL/L (135-145); TOTAL CARBON DIOXIDE 28.3 MMOL/L (24-32); TOTAL PROTEIN 7.8 G/DL (6.4-8.2); eGFR 84 ML/MIN
[2021-12-17] MEDS ORDERED: normal saline 1000ml 1,000 ML IV ONE ×2 (23:25)
[2021-12-17] MEDS ORDERED: metoclopramide 5 mg/ml inj IV ONE (23:25)
[2021-12-17] MEDS ORDERED: ondansetron/PF 4mg/2ml inj IV ONE (23:25)
[2021-12-17 23:43] LABS: URINE HCG NEGATIVE (NEG)
[2021-12-17 23:47] LABS: CLARITY,URINE CLEAR (Clear); COLOR,URINE YELLOW (Yellow); GLUCOSE, URINE 100 mg/dl (Neg); KETONES,URINE 15 mg/dl (Neg); LEUKOCYTE ESTERASE ,URINE NEGATIVE (Neg); NITRITES, URINE NEGATIVE (Neg); OCCULT BLOOD,URINE NEGATIVE (Neg); PROTEIN,URINE TRACE mg/dl (Neg); UROBILINOGEN,URINE 0.2 E.U/dL (0.2-1.0)
--- NOTE | 2021-12-17 23:51 | NUR ---
ivp x2 given by arvin peck 1000ml nacl bolas started
[2021-12-17 23:53] LABS: UA COLLECTION TYPE NON-SPECIFIED
[2021-12-17 23:57] LABS: RBC,URINE 0-2 /HPF (0-2); WBC,URINE NONE SEEN /HPF (0-4)
[2021-12-17 23:58] LABS: BACTERIA,URINE FEW /HPF (Neg); MUCUS STRANDS MODERATE /LPF (Neg); SQUAMOUS EPITHELIAL CELL,UR FEW /LPF (FEW)
[2021-12-18] MEDS ORDERED: ONDA8TAB13 PO (01:33)
--- NOTE | 2021-12-18 01:51 | NUR ---
iv dc 'd pt being discharged.
== END 2021-12-18 01:52 | disposition home or self-care (01) ==
LOC: ER 21:45
DX: K31.84 Gastroparesis (principal); Z20.822 Contact with and (suspected) exposure to COVID-19; R11.2 Nausea with vomiting, unspecified; E11.43 Type 2 diabetes mellitus with diabetic autonomic (poly)neuropathy; Z90.89 Acquired absence of other organs; Z79.4 Long term (current) use of insulin; Z79.899 Other long term (current) drug therapy
CPT/HCPCS: 36415; 80053; 81001; 81025; 83690; 85025; 87502; 87503; 87635; 96361; 96374; 96375; 99284; C9803; J2405; J2765; J7030

== ENCOUNTER 2022-04-13 21:56 | Emergency (ER) | payer MEDICAID ==
[~2022-04-13] VITALS: Ht 162.6 cm; Wt 80.9 kg
[~2022-04-13 21:56] MED LIST changes: +ONDA8TAB13 PO
[2022-04-13 22:09] VITALS: BP 98/69
[2022-04-13 22:39] LABS: BASOPHILS # (AUTO) 0.1 X10'3 (0-0.2); BASOPHILS % (AUTO) 0.3 % (0-1); EOSINOPHILS # (AUTO) 0.1 X10'3 (0-0.9); EOSINOPHILS % (AUTO) 0.5 % (0-6); HEMATOCRIT 41.4 % (35.0-45.0); HEMOGLOBIN 13.5 g/dl (12.0-16.0); LYMPHOCYTES # (AUTO) 2.6 X10'3 (1.1-4.8); LYMPHOCYTES % (AUTO) 13.3 % (21-51); MEAN CORPUSCULAR HEMOGLOBIN 29.5 PG (27.0-31.0); MEAN CORPUSCULAR HGB CONC 32.6 g/dL (33.0-36.5); MEAN CORPUSCULAR VOLUME 90.5 FL (78-98); MEAN PLATELET VOLUME 9.2 FL (7.4-10.4); MONOCYTES # (AUTO) 1.1 X10'3 (0-0.9); MONOCYTES % (AUTO) 5.8 % (2-12); NEUTROPHILS # (AUTO) 15.5 X10'3 (1.8-7.7); NEUTROPHILS % (AUTO) 80.1 % (42-75); PLATELET COUNT 405 X10'3 (140-440); RED BLOOD COUNT 4.57 X10'6 (4.20-5.60); RED CELL DISTRIBUTION WIDTH 13.8 % (11.5-14.5); WHITE BLOOD COUNT 19.4 X10'3 (4.5-11.0)
[2022-04-13 22:52] LABS: ALANINE AMINOTRANSFERASE 18 U/L (12-78); ALBUMIN 3.9 G/DL (3.4-5.0); ALBUMIN/GLOBULIN RATIO 0.9 (1.1-1.5); ALKALINE PHOSPHATASE 103 IU/L (46-116); ANION GAP 11 (8-16); ASPARTATE AMINO TRANSFERASE 13 U/L (10-37); BILIRUBIN,TOTAL 0.2 MG/DL (0.1-1.0); BLOOD UREA NITROGEN 20 MG/DL (7-18); BUN/CREATININE RATIO 26.3 (6.6-38.0); CALCIUM 8.9 MG/DL (8.5-10.1); CHLORIDE 101 MMOL/L (99-107); CREATININE 0.76 MG/DL (0.40-0.90); GLUCOSE 120 MG/DL (70-104); LIPASE 100 U/L (73-393); POTASSIUM 3.9 MMOL/L (3.5-5.1); SODIUM 132 MMOL/L (135-145); TOTAL CARBON DIOXIDE 19.7 MMOL/L (24-32); TOTAL PROTEIN 8.2 G/DL (6.4-8.2); eGFR 90 ML/MIN
--- NOTE | 2022-04-13 23:25 | NUR ---
PT BOYFRIEND CAME TO REGISTRATION FRUSTRATED ABOUT HIS GIRLFRIEND NOT HAVING A ROOM AFTER BEING BROUGHT TO THE ED VIA EMS . EDUCATED PT BOYFRIEND ABOUT THE POLICY AND EASSURED HIM THAT HIS GIRLFRIEND WAS BEING CARED FOR AND THAT SHE WILL BE SEEN SOON POSSIBLE . PT WAS ALSO ADVISED TO BE PATIENT TO BE SEEN ..BY THE DR THAT HER LABS WERE PEDNING . SHE WAS ADVISED THAT IT WAS AGAINST MEDICAL ADVICE TO LEAVE THE FACILITY WITHOUT BEING SEEN BY A DOCTOR AND ANITHA IT CAN BE A RISK OF INJURY INCLUDING . PT VERBALIZED UNDERSTANDING AND HER BOYFRIEND WHEELED HER OFF THE UNIT TO HIS CAR AND DROVE OFF .
[2022-04-13 23:51] LABS: PLATELET ESTIMATE NORMAL; TOTAL CELLS COUNTED 100
[2022-04-13 23:52] LABS: TOXIC GRANULATION 1+
== END 2022-04-13 23:31 | disposition left against medical advice (07) ==
LOC: ER 21:56
DX: R11.10 Vomiting, unspecified (principal); R19.7 Diarrhea, unspecified; Z53.21 Procedure and treatment not carried out due to patient leaving prior to being seen by health care provider
CPT/HCPCS: 36415; 80053; 83690; 85007; 85025

== ENCOUNTER 2023-12-07 09:53 | Emergency (ER) | payer MEDICAID ==
[~2023-12-07] VITALS: Ht 162.6 cm; Wt 83.8 kg
[2023-12-07] MEDS ORDERED: CEPH500C2 PO (12:58)
[2023-12-07 13:29] VITALS: BP 140/70; PULSE 78; RESP 16; TEMP 98.4; O2SAT 99
== END 2023-12-07 13:31 | disposition home or self-care (01) ==
LOC: ER 09:53
DX: L60.0 Ingrowing nail (principal); E11.9 Type 2 diabetes mellitus without complications; Z79.2 Long term (current) use of antibiotics; Z79.4 Long term (current) use of insulin; Z79.899 Other long term (current) drug therapy; Z98.890 Other specified postprocedural states
CPT/HCPCS: 73660; 99283

== ENCOUNTER 2024-02-15 08:26 | Emergency (ER) | payer MEDICAID ==
[~2024-02-15] VITALS: Ht 162.6 cm; Wt 77.3 kg
[~2024-02-15 08:26] MED LIST changes: +ONDA-243 PO; +ONDA-245 PO; -ONDA4TAB12 PO; -ONDA8TAB13 PO
[2024-02-15 08:31] VITALS: TEMP 97.8
[2024-02-15] MEDS ORDERED: amox tr/potassium clavulanate 875/125mg TAB PO ONE (09:55)
[2024-02-15] MEDS ORDERED: AMOX-580 PO (10:00)
[2024-02-15] MEDS: acetaminophen 325mg tablet PO ONE (10:34)
[2024-02-15] MEDS: naproxen 500mg tablet PO ONE (10:34)
[2024-02-15 10:38] VITALS: BP 140/77; PULSE 98; RESP 16; O2SAT 100
== END 2024-02-15 10:39 | disposition home or self-care (01) ==
LOC: ER 08:26
DX: K00.6 Disturbances in tooth eruption (principal); K02.9 Dental caries, unspecified; K08.89 Other specified disorders of teeth and supporting structures; K04.7 Periapical abscess without sinus; E11.9 Type 2 diabetes mellitus without complications; Z90.49 Acquired absence of other specified parts of digestive tract; Z79.2 Long term (current) use of antibiotics; Z79.4 Long term (current) use of insulin; Z79.899 Other long term (current) drug therapy
CPT/HCPCS: 99283